=== PATIENT | female | born 1990 | race American Indian/Alaskan Native ===

== ENCOUNTER 2020-08-11 08:35 | Emergency (ER) | payer OTHER ==
[2020-08-11] MEDS ORDERED: SODIUM CHLORIDE 0.9% 1000 ML 1,000 ML IV ONE (12:57)
[2020-08-11] MEDS ORDERED: KETOROLAC 30 MG/1 ML INJ IV ONE (12:57)
[2020-08-11 13:11] LABS: Basophils % (Auto) 0.9 % (0.0-1.8); Eosinophils % (Auto) 0.9 % (0.0-4.3); Hematocrit 40.4 % (30.3-42.9); Hemoglobin 13.5 gm/dl (10.1-14.3); Lymphocytes # (Auto) 1.9 K/mm3 (1.2-5.4); Lymphocytes % (Auto) 40.1 % (13.4-35.0); Mean Corpuscular HGB Conc 33 % (30-34); Mean Corpuscular Volume 90 fl (79-97); Monocytes # (Auto) 0.3 K/mm3 (0.0-0.8); Platelet Count 298 K/mm3 (140-440); Red Blood Count 4.49 M/mm3 (3.65-5.03); Red Cell Distribution Width 13.9 % (13.2-15.2)
[2020-08-11 13:13] LABS: HCG Qualitative,Urine Negative (Negative)
[2020-08-11 13:23] LABS: Bilirubin,Urine NEG (Negative); Blood,Urine SM (Negative); Color,Urine Yellow (Yellow); Mucus,Urine FEW /HPF; Protein,Urine <15 mg/dL mg/dL (Negative); Urobilinogen,Urine < 2.0 mg/dL (<2.0)
--- NOTE | 2020-08-11 13:43 | Cat Scan Report ---
CT ABDOMEN AND PELVIS WITHOUT CONTRAST HISTORY: Injury, roof fell on, neck and lower back pain COMPARISON: None. TECHNIQUE: Axial CT images were obtained through the abdomen and pelvis without IV contrast. Sagittal and coronal reformatted images. All CT scans at this location are performed using CT dose reduction for ALARA by means of automated exposure control. FINDINGS: CT ABDOMEN: Lung Bases: Clear. Liver: No significant abnormality. Biliary: No significant abnormality. Spleen: No significant abnormality. Unenlarged. Pancreas: No significant abnormality. Adrenals: No significant abnormality. Kidneys: No significant abnormality. Lymphatics: No lymphadenopathy. Vasculature: No significant abnormality. Bowel/Peritoneum: No significant abnormality. No free air. No free fluid. Normal appendix CT PELVIS: : 1.8 cm right ovarian cyst is identified. The uterus, left adnexa and bladder are unremarkable. Osseous Structures: No significant abnormality. Additional Findings: None IMPRESSION: No acute process. 1.8 cm right ovarian cyst. Signer Name: Luciano Stallings Jr, MD Signed: 08/11/2020 1:39 PM Workstation Name: [id number]
[2020-08-11 13:48] LABS: Alanine Aminotransferase 11 units/L (7-56); Albumin 5.2 g/dL (3.9-5); Blood Urea Nitrogen 9 mg/dL (7-17); Calcium 10.4 mg/dL (8.4-10.2); Hemolysis Index 20
[2020-08-11 13:53] LABS: BUN/Creatinine Ratio 13
--- NOTE | 2020-08-11 14:15 | Emergency Department Report ---
ED Abdominal Pain HPI - General Chief Complaint: Abdominal Pain Stated Complaint: POSS UTI/KIDNEY STONE Time Seen by Provider: 08/11/20 12:16 Source: patient Mode of arrival: Ambulatory Limitations: No Limitations - History of Present Illness Initial Comments: This is a 29-year-old female nontoxic, well nourished in appearance, no acute signs of distress presents to the ED with c/o of dysuria with right flank pain x 1 day. Agrees to some nausea without any vomiting. Patient denies any vaginal discharge, bleeding, ulcers or lesions. Denies any abdominal pain. Patient denies any pelvic pain. Patient denies any nausea, vomiting, chest pain, earnest rtness of breathe, fever, chills, headache, back pain, numbness, tingling, stiff neck. Patient denies any urinary symptoms. Patient denies any allergies or PMH. MD Complaint: flank pain -: days(s) Location: R flank Radiation: none Migration to: no migration Severity: mild Severity scale (0 -10): 8 Quality: cramping, aching Improves With: nothing Worsens With: nothing Associated Symptoms: nausea. denies: vomiting, diarrhea, fever, chills, constipation, dysuria, hematemesis, hematochezia, hematuria, anorexia, syncope - Related Data Previous Rx's Medication Instructions Recorded Last Taken Type Ibuprofen [Motrin 800 MG tab] 800 mg PO Q8HR PRN #10 tablet 06/03/19 Unknown Rx Ondansetron [Zofran Odt] 4 mg PO Q8HR #10 tab.rapdis 06/03/19 Unknown Rx methOCARBAMOL [Robaxin TAB] 500 mg PO Q6H PRN #14 tablet 06/03/19 Unknown Rx traMADoL [Ultram] 50 mg PO Q6HR PRN #12 tablet 06/03/19 Unknown Rx cephALEXin [Keflex] 500 mg PO Q8HR #21 cap 08/11/20 Unknown Rx Allergies Allergy/AdvReac Type Severity Reaction Status Date / Time No Known Allergies Allergy Unverified 06/03/19 17:00 ED Review of Systems ROS: Stated complaint: POSS UTI/KIDNEY STONE Other details as noted in HPI Comment: All other systems reviewed and negative Constitutional: denies: chills, fever Eyes: denies: eye pain, eye discharge, vision change ENT: denies: ear pain, throat pain Respiratory: denies: cough, shortness of breath, wheezing Cardiovascular: denies: chest pain, palpitations Endocrine: no symptoms reported Gastrointestinal: nausea. denies: abdominal pain, vomiting, diarrhea, constipation, hematemesis, melena, hematochezia Genitourinary: dysuria, other (flank pain). denies: urgency, frequency, hematuria, discharge, abnormal menses, dyspareunia Musculoskeletal: as per HPI. denies: back pain, joint swelling, arthralgia Skin: denies: rash, lesions Neurological: denies: headache, weakness, paresthesias Psychiatric: denies: anxiety, depression Hematological/Lymphatic: denies: easy bleeding, easy bruising ED Past Medical Hx - Past Medical History Previous Medical History?: No - Surgical History Past Surgical History?: No - Social History Smoking Status: Never Smoker Substance Use Type: None - Medications Home Medications: Home Medications Medication Instructions Recorded Confirmed Last Taken Type Ibuprofen [Motrin 800 MG tab] 800 mg PO Q8HR PRN #10 tablet 06/03/19 Unknown Rx Ondansetron [Zofran Odt] 4 mg PO Q8HR #10 tab.rapdis 06/03/19 Unknown Rx methOCARBAMOL [Robaxin TAB] 500 mg PO Q6H PRN #14 tablet 06/03/19 Unknown Rx traMADoL [Ultram] 50 mg PO Q6HR PRN #12 tablet 06/03/19 Unknown Rx cephALEXin [Keflex] 500 mg PO Q8HR #21 cap 08/11/20 Unknown Rx ED Physical Exam - General Limitations: No Limitations General appearance: alert, in no apparent distress - Head Head exam: Present: atraumatic, normocephalic - Eye Eye exam: Present: normal appearance - Neck Neck exam: Present: normal inspection, full ROM. Absent: tenderness, meningismus, lymphadenopathy - Respiratory Respiratory exam: Present: normal lung sounds bilaterally. Absent: respiratory distress, wheezes, rales, rhonchi, stridor, chest wall tenderness, accessory muscle use, decreased breath sounds, prolonged expiratory - Cardiovascular Cardiovascular Exam: Present: regular rate, normal rhythm, normal heart sounds. Absent: irregular rhythm, systolic murmur, diastolic murmur, rubs, gallop - GI/Abdominal GI/Abdominal exam: Present: soft, normal bowel sounds. Absent: distended, tenderness, guarding, rebound, rigid, diminished bowel sounds - Extremities Exam Extremities exam: Present: normal inspection, full ROM - Back Exam Back exam: Present: full ROM, CVA tenderness (R), CVA tenderness (L). Absent: tenderness, muscle spasm, paraspinal tenderness, vertebral tenderness, rash noted - Neurological Exam Neurological exam: Present: alert, oriented X3, normal gait - Psychiatric Psychiatric exam: Present: normal affect, normal mood - Skin Skin exam: Present: warm, dry, intact, normal color. Absent: rash ED Course Vital Signs 08/11/20 08/11/20 10:40 12:51 Temperature 97.4 F L Pulse Rate 66 Respiratory 16 15 Rate Blood Pressure 114/70 [Right] O2 Sat by Pulse 98 Oximetry - Reevaluation(s) Reevaluation #1: 08/11/20 14:14 Patient is speaking in full sentences with no signs of distress noted. ED Medical Decision Making - Lab Data Result diagrams: 08/11/20 13:00 08/11/20 13:00 Lab Results 08/11/20 08/11/20 08/11/20 Range/Units 12:13 13:00 13:00 WBC 4.7 (4.5-11.0) K/mm3 RBC 4.49 (3.65-5.03) M/mm3 Hgb 13.5 (10.1-14.3) gm/dl Hct 40.4 (30.3-42.9) % MCV 90 (79-97) fl MCH 30 (28-32) pg MCHC 33 (30-34) % RDW 13.9 (13.2-15.2) % Plt Count 298 (140-440) K/mm3 Lymph % (Auto) 40.1 H (13.4-35.0) % [place] % (Auto) 6.0 (0.0-7.3) % Eos % (Auto) 0.9 (0.0-4.3) % Baso % (Auto) 0.9 (0.0-1.8) % Lymph # (Auto) 1.9 (1.2-5.4) K/mm3 [place] # (Auto) 0.3 (0.0-0.8) K/mm3 Eos # (Auto) 0.0 (0.0-0.4) K/mm3 Baso # (Auto) 0.0 (0.0-0.1) K/mm3 Seg Neutrophils % 52.1 (40.0-70.0) % Seg Neutrophils # 2.4 (1.8-7.7) K/mm3 Sodium 138 (137-145) mmol/L Potassium 4.3 (3.6-5.0) mmol/L Chloride 101.7 (98-107) mmol/L Carbon Dioxide 22 (22-30) mmol/L Anion Gap 19 mmol/L BUN 9 (7-17) mg/dL Creatinine 0.7 (0.6-1.2) mg/dL Estimated GFR > 60 ml/min BUN/Creatinine Ratio 13 % Glucose 84 (65-100) mg/dL Calcium 10.4 H (8.4-10.2) mg/dL Total Bilirubin 0.40 (0.1-1.2) mg/dL AST 17 (5-40) units/L ALT 11 (7-56) units/L Alkaline Phosphatase 48 (35-129) units/L Total Protein 8.7 H (6.3-8.2) g/dL Albumin 5.2 H (3.9-5) g/dL Albumin/Globulin Ratio 1.5 % Lipase 25 (13-60) units/L Urine Color Yellow (Yellow) Urine Turbidity Clear (Clear) Urine pH 5.0 (5.0-7.0) Ur Specific [place] 1.021 (1.003-1.030) Urine Protein <15 mg/dl (Negative) mg/dL Urine Glucose (UA) Neg (Negative) mg/dL Urine Ketones Neg (Negative) mg/dL Urine Blood Sm (Negative) Urine Nitrite Neg (Negative) Ur Reducing Substances Not Reportable Urine Bilirubin Neg (Negative) Urine Ictotest Not Reportable Urine Urobilinogen < 2.0 (<2.0) mg/dL Ur Leukocyte Esterase Sm (Negative) Urine WBC (Auto) 1.0 (0.0-6.0) /HPF Urine RBC (Auto) 4.0 (0.0-6.0) /HPF U Epithel Cells (Auto) 6.0 (0-13.0) /HPF Urine Mucus Few /HPF Urine HCG, Qual Negative (Negative) - Radiology Data Referring Physician: DENNIS HELTON Patient Name: BELINDA BIRMINGHAM Date of : 1990 Sex: Female Report Date: 2020-08-11 Report Status: Finalized [facility] [address] [place] [address] Cat Scan Report Signed Patient: BELINDA GALVAN MR#: [id number] : 1990 Acct:[id number] Age/Sex: 29 / F ADM Date: 08/11/20 Loc: ED Attending Dr: Ordering Physician: DENNIS HELTON NP Date of Service: 08/11/20 Procedure(s): CT abdomen pelvis wo con Accession Number(s): [id number] cc: DENNIS HELTON NP CT ABDOMEN AND PELVIS WITHOUT CONTRAST HISTORY: Injury, roof fell on, neck and lower back pain COMPARISON: None. TECHNIQUE: Axial CT images were obtained through the abdomen and pelvis without IV contrast. Sagittal and coronal reformatted images. All CT scans at this location are performed using CT dose reduction for ALARA by means of automated exposure control. FINDINGS: CT ABDOMEN: Lung Bases: Clear. Liver: No significant abnormality. Biliary: No significant abnormality. Spleen: No significant abnormality. Unenlarged. Pancreas: No significant abnormality. Adrenals: No significant abnormality. Kidn eys: No significant abnormality. Lymphatics: No lymphadenopathy. Vasculature: No significant abnormality. Bowel/Peritoneum: No significant abnormality. No free air. No free fluid. Normal appendix CT PELVIS: : 1.8 cm right ovarian cyst is identified. The uterus, left adnexa and bladder are unremarkable. Osseous Structures: No significant abnormality. Additional Findings: None IMPRESSION: No acute process. 1.8 cm right ovarian cyst. Signer Name: Luciano Stallings Jr, MD Signed: 08/11/2020 1:39 PM Workstation Name: [id number] Transcribed By: TTR Dictated By: LUCIANO STALLINGS JR, MD Electronically Authenticated By: LUCIANO STALLINGS JR, MD Signed Date/Time: 08/11/201338 DD/ 35 TD/TT: - Medical Decision Making 29-year-old female that presents with right flank pain. Patient is stable and was examined by me. CT is unremarkable and urine does show that she has some RBCs. This may indicate a recent passage of a stone. Also due to symptoms of dysuria with some right CVA tenderness I will treat patient with Keflex until urine cultures results. Patient stated symptoms are has improved and subsided after medical treatment in the ER. Patient is notified of the CT results with no questions noted by the patient. Patient was instructed to follow-up with a primary care doctor in 3-5 days or if symptoms worsen and continue return to emergency room as soon as possible. At time of discharge, the patient does not seem toxic or ill in appearance. No acute signs of distress noted. Patient agrees to discharge treatment plan of care. No further questions noted by the patient. Critical care attestation.: If time is entered above; I have spent that time in minutes in the direct care of this critically ill patient, excluding procedure time. ED Disposition Clinical Impression: Dysuria, Right flank pain Disposition: TO HOME OR SELFCARE Is pt being admited?: No Does the pt Need Aspirin: No Condition: Stable Instructions: Dysuria, Flank Pain, Adult, [id number], Abdominal Pain (ED) Additional Instructions: Follow-up with a primary care doctor in 3-5 days or if symptoms worsen and continue return to emergency room as soon as possible. Prescriptions: cephALEXin [Keflex] 500 mg PO Q8HR #21 cap Referrals: EFRAIN ROCHA MD [Primary Care Provider] - 3-5 Days BEN WILSON MD [Referring] - 3-5 Days JN FRAGA MD [Staff Physician] - 3-5 Days Forms: Work/School Release Form(ED) Time of Disposition: 14:23
[2020-08-11 14:38] VITALS: BP 123/67
== END 2020-08-11 14:44 | disposition home or self-care (01) ==
LOC: ED 08:35
DX: R30.0 Dysuria (principal); R10.9 Unspecified abdominal pain; Z79.899 Other long term (current) drug therapy
CPT/HCPCS: 36415; 74176; 80053; 81001; 81025; 83690; 85025; 96361; 96374; 99284; J1885; J7030